=== PATIENT | female | born 1940 | race Caucasian/White ===

== ENCOUNTER 2018-04-09 17:52 | Emergency (ER) | payer MEDICARE ==
[~2018-04-09] VITALS: Ht 167.6 cm; Wt 62.0 kg
[~2018-04-09 17:52] MED LIST: ASPI81TA50 PO; LISI-167 PO; LORA1TAB PO; METF500T17 PO
[2018-04-09 19:44] VITALS: BP 131/59
== END 2018-04-09 19:47 | disposition home or self-care (01) ==
LOC: ED 19:41
DX: I10 Essential (primary) hypertension (principal); F41.1 Generalized anxiety disorder; E11.9 Type 2 diabetes mellitus without complications; Z90.710 Acquired absence of both cervix and uterus; Z88.8 Allergy status to other drugs, medicaments and biological substances
CPT/HCPCS: 99283

== ENCOUNTER 2018-04-18 09:07 | Emergency (ER) | payer MEDICARE ==
[~2018-04-18] VITALS: Ht 167.6 cm; Wt 61.0 kg
[2018-04-18 10:21] VITALS: BP 117/65
== END 2018-04-18 10:23 | disposition home or self-care (01) ==
LOC: ED 09:33
DX: I10 Essential (primary) hypertension (principal); E11.9 Type 2 diabetes mellitus without complications
CPT/HCPCS: 93005; 99283

== ENCOUNTER 2018-07-17 17:57 | Emergency (ER) | payer MEDICARE ==
[~2018-07-17] VITALS: Ht 167.6 cm; Wt 59.0 kg
[2018-07-17] MEDS ORDERED: SODIUM CHLORIDE FLUSH 10ML SYR IVF ONE (18:30)
--- NOTE | 2018-07-17 18:33 | NUR ---
PT PLACED ON HEART MONITOR, BP CUFF, PULSE OX.
[2018-07-17 18:43] LABS: BASOPHILS # (AUTO) 0.02 x10^3/uL (0-0.1); BASOPHILS % (AUTO) 0 % (0-1); EOSINOPHILS # (AUTO) 0.08 x10^3/uL (0-0.4); EOSINOPHILS % (AUTO) 2 % (1-7); LYMPHOCYTES # (AUTO) 0.63 x10^3/uL (1-3.4); LYMPHOCYTES % (AUTO) 12 % (22-44); MD NO; MEAN CORPUSCULAR HGB CONC 33.8 g/dL (32.4-35.8); MEAN CORPUSCULAR VOLUME 85.8 fL (80-100); MEAN PLATELET VOLUME 8.4 fL (7.4-10.4); MONOCYTES # (AUTO) 0.31 x10^3/uL (0.2-0.8); MONOCYTES % (AUTO) 6 % (2-9); NEUTROPHILS # (AUTO) 4.32 x10^3/uL (1.8-6.8); NEUTROPHILS % (AUTO) 81 % (42-75); PLATELET COUNT 213 x10^3/uL (130-400); RED BLOOD COUNT 4.22 x10^6/uL (3.82-5.3); RED CELL DISTRIBUTION WIDTH 15.5 % (9.6-15.2)
[2018-07-17 18:54] LABS: ALANINE AMINOTRANSFERASE 67 U/L (12-78); ALBUMIN 3.3 g/dL (3.4-5.0); ANION GAP 7 mmol/L (5-15); CALCIUM 8.9 mg/dL (8.5-10.1); CHLORIDE 104 mmol/L (98-107)
[2018-07-17] MEDS ORDERED: LORazepam 1MG TABLET ONE (18:56)
[2018-07-17 18:59] LABS: ALKALINE PHOSPHATASE 94 U/L (45-117); BILIRUBIN,TOTAL 0.2 mg/dL (0.2-1.0); CREATININE 0.72 mg/dL (0.55-1.02); TROPONIN I < 0.015 ng/mL (0.000-0.045)
[2018-07-17] MEDS ORDERED: LORazepam 1MG TABLET PO ONE (19:00)
--- NOTE | 2018-07-17 19:03 | NUR ---
MED GIVEN PER ERP ORDER. PT'S BP 162/65. ALL QUESTIONS ANSWERED, CALL LIGHT WITHIN REACH.
--- NOTE | 2018-07-17 19:04 | NUR ---
REPORT TO ISMAEL SALAS.
[2018-07-17 19:46] VITALS: BP 123/53
== END 2018-07-17 20:00 | disposition home or self-care (01) ==
LOC: ED 19:06
DX: R07.2 Precordial pain (principal); I10 Essential (primary) hypertension; E11.9 Type 2 diabetes mellitus without complications
CPT/HCPCS: 36415; 71045; 80053; 84484; 85025; 93005; 99284